=== PATIENT | female | born 1995 | race Caucasian/White ===

== ENCOUNTER 2019-03-28 15:08 | Emergency (ER) | payer OTHER ==
--- NOTE | 2019-03-28 15:36 | ER Document Report ---
ED Medical Screen (RME) - General Chief Complaint: Vag Bleeding, +preg <12wks Stated Complaint: VAGINAL BLEEDING Time Seen by Provider: 03/28/19 15:32 TRAVEL OUTSIDE OF THE [place] IN LAST 30 DAYS: No - HPI Notes: 03/28/19 15:35 Patient is a 23-year-old female G3, P1 approximately 7 weeks by gestation who presents complaining of light vaginal bleeding that began last evening. She is able to eat and drink without difficulty. She is urinating normally. No other concerns or complaints. No surgical history to her abdomen. Denies EATON, fever, neck pain, URI, CP, SOB, Abd pain, dysuria, back pain, or rash. I have treated and performed a rapid initial assessment of this patient. A comprehensive ED assessment and evaluation of the patient, analysis of test results and completion of medical decision making process will be conducted by additional ED providers. PHYSICAL EXAMINATION: GENERAL: Well-appearing, well-nourished and in no acute distress. A&Ox4. Answers questions appropriately. LUNGS: Breath sounds clear to auscultation bilaterally and equal. No wheezes rales or rhonchi. HEART: Regular rate and rhythm without murmurs, rubs, gallops. ABDOMEN: Soft, nondistended abdomen. No guarding, no rebound. Normal bowel sounds present. No CVA tenderness bilaterally. Grossly nontender (cannot elicit thorough abd exam w/o bed, however). - Related Data Allergies/Adverse Reactions: Penicillins Allergy (Verified 03/28/19 15:09) Past Medical History - General Last Menstrual Period: 02/04/19 - Social History Frequency of alcohol use: None Drug Abuse: None Renal/ Medical History: Denies: Hx Peritoneal Dialysis Physical Exam - Vital signs Vitals: Temp Pulse Resp BP Pulse Ox 98.9 F 87 20 136/65 H 98 03/28/19 15:12 03/28/19 15:12 03/28/19 15:12 03/28/19 15:12 03/28/19 15:12 Course - Vital Signs Vital signs: Temp Pulse Resp BP Pulse Ox 98.9 F 87 20 136/65 H 98 03/28/19 15:12 03/28/19 15:12 03/28/19 15:12 03/28/19 15:12 03/28/19 15:12
[2019-03-28 16:46] LABS: ABSOLUTE BASOPHILS # (AUTO) 0.1 10^3/uL (0.0-0.2); ABSOLUTE EOSINOPHILS # (AUTO) 0.1 10^3/uL (0.0-0.6); ABSOLUTE MONOCYTES (AUTO) 0.7 10^3/uL (0.1-1.4); ABSOLUTE NEUT (AUTO) 8.1 10^3/uL (1.7-8.2); BASOPHILS % (AUTO) 0.7 % (0-2); HEMATOCRIT 42.8 % (36.0-47.0); HEMOGLOBIN 14.6 g/dL (12.0-15.5); LYMPHOCYTES % (AUTO) 24.6 % (13-45); MEAN CORPUSCULAR HEMOGLOBIN 28.9 pg (27.0-33.4); MEAN CORPUSCULAR VOLUME 85 fl (80-97); MONOCYTES % (AUTO) 6.2 % (3-13); PLATELET COUNT 357 10^3/uL (150-450); RED BLOOD COUNT 5.04 10^6/uL (3.72-5.28); SEGMENTED NEUTROPHILS % (AUTO) 67.5 % (42-78); TOTAL CELLS COUNTED % (AUTO) 100 %
[2019-03-28 16:51] LABS: APPEARANCE,URINE SLIGHTLY-CLOUDY; BILIRUBIN,URINE NEGATIVE (NEGATIVE); COLOR,URINE YELLOW; GLUCOSE, URINE NEGATIVE (NEGATIVE); KETONES,URINE NEGATIVE (NEGATIVE); LEUKOCYTE ESTERASE,URINE NEGATIVE (NEGATIVE); NITRITE,URINE NEGATIVE (NEGATIVE); PROTEIN,URINE NEGATIVE (NEGATIVE); URINE SPECIFIC GRAVITY 1.028; UROBILINOGEN,URINE NEGATIVE mg/dL (<2.0)
--- NOTE | 2019-03-28 17:38 | RADIOLOGY REPORT (SQ) ---
EXAM DESCRIPTION: U/S OB TRANSVAGINAL W/O DOP COMPLETED DATE/TIME: 03/28/2019 5:13 pm REASON FOR STUDY: preg, bleeding COMPARISON: None. TECHNIQUE: Transabdominal static and realtime grayscale images acquired of the pelvis. Additional se lected spectral and color Doppler images recorded. All images stored on PACs. bHCG: Not available. CLINICAL DATES: 7 weeks, 3 days LIMITATIONS: None. FINDINGS: FETUS: A focal hypoechoic structure within the endometrial cavity is identified by the so nographer as a pole and measured at 0.6 cm crown-rump length, gestational age 6 weeks, 3 days. There is no proper gestational sac identified. EFW: Not applicable less than 20 weeks. CRL: 0.6 cm. FHR: Not visualized. UTERUS: No masses. No anomalies. CERVICAL LENGTH: 2.7 cm Closed. RIGHT ADNEXA: Normal ovary with normal vascular flow. No adnexal free fluid. No adnexal masses. LEFT ADNEXA: Not visualized. No adnexal free fluid. No adnexal masses. FREE FLUID: None. OTHER: No other significant finding. IMPRESSION: A focal hypoechoic structure within the endometrial cavity is identified by the sonograp her as a pole and measured at 0.6 cm crown-rump length, gestational age 6 weeks, 3 days. There is no proper gestational sac or amniotic fluid identified. No cardiac activity identified. Th is is not characteristic in appearance of a viable gestation and not favored to represent a viable fe jomar pole. Early of uncertain location and viability. Recommend ectopic precautions, seria l beta HCG, and follow-up ultrasound examination in 7 to 14 days to ensure continued development and viability. Trimester of : First - 0 to 13 weeks. TECHNICAL DOCUMENTATION: JOB ID: [id number] [employer]- All Rights Reserved rev Reading location - IP/workstation name: [email or web address]
--- NOTE | 2019-03-28 18:42 | ER Document Report ---
ED General - General Chief Complaint: Vag Bleeding, +preg <12wks Stated Complaint: VAGINAL BLEEDING Time Seen by Provider: 03/28/19 15:32 Mode of Arrival: Ambulatory Information source: Patient TRAVEL OUTSIDE OF THE [place] IN LAST 30 DAYS: No - HPI Patient complains to provider of: Spotting in early . Onset: Other - Off and on for a couple of weeks Onset/Duration: Intermittent Quality of pain: No pain Severity: None Associated symptoms: None Exacerbated by: Denies Relieved by: Denies Similar symptoms previously: No Recently seen / treated by doctor: No Notes: 23-year-old female 3 para 1 spontaneous AB 1 here with early . Does not know how far along she is. Intermittent spotting off and on for the past week or so. No pelvic cramping of significance. No fevers no chills. No clots or tissue. - Related Data Allergies/Adverse Reactions: Penicillins Allergy (Verified 03/28/19 15:09) Past Medical History - General Information source: Patient Last Menstrual Period: 02/04/19 - Social History Smoking Status: Former Smoker Frequency of alcohol use: None Drug Abuse: None Family History: Reviewed & Not Pertinent Patient has suicidal ideation: No Patient has homicidal ideation: No Renal/ Medical History: Denies: Hx Peritoneal Dialysis Review of Systems - Review of Systems Notes: Constitutional: No fevers. No chills. EENT: No eye redness. No eye pain. No ear pain. No sore throat. Cardiovascular: No chest pain. No palpitations. Respiratory: No cough. No shortness of breath. No respiratory distress. Gastrointestinal: No abdominal pain. No nausea, vomiting, or diarrhea. Genitourinary: Vaginal bleeding Musculoskeletal: Atraumatic. No swelling. No deformities. Skin: No rash or lesions. Lymphatic: No swollen lymph nodes. Neurologic: No headache. No syncope. Psychiatric: No suicidal or homicidal ideation. Physical Exam - Vital signs Vitals: Temp Pulse Resp BP Pulse Ox 98.9 F 87 20 136/65 H 98 03/28/19 15:12 03/28/19 15:12 03/28/19 15:12 03/28/19 15:12 03/28/19 15:12 - Notes Notes: General: Well-developed, well-nourished. In no acute distress. Non-toxic appearing. Cardiac: Well-perfused. Regular rate and rhythm. No murmurs, rubs, or gallops. Pulmonary: No respiratory distress. No cyanosis. Bilateral lung fiels are clear to auscultation. Abdominal: Non-distended. Non-rigid. Bowels sounds are present in all four quadrants. No guarding or rebound. HEENT: Head is atraumatic. Conjunctivae not reddened. No tearing. PERRL. EOMI. Orbits atraumatic. No periorbital swelling or erythema. Oropharynx is without erythema, swelling, or exudates. Neck: Supple. No adenopathy. No meningismus. Dermatologic: Warm with good turgor. No rash. Atraumatic. Chest: Atraumatic. No chest wall tenderness to palpation. Musculoskeletal: Moves all extremities well. No range of motion deficits. no muscular or joint tenderness. No paraspinal muscle tenderness. no midline spinal tenderness or step-off. Genitourinary: Examination deferred Neurologic: No gross neurologic deficits. Psychiatric: Normal mood. Course - Re-evaluation Re-evalutation: 03/28/19 18:39 Lab work reveals that you are indeed . Your quantitative hCG level is 1610. This signifies that you are very early in . Your ultrasound shows that there is some evidence of developing in your uterus. However, because of how early it is, there is no heartbeat or evidence of viability at this time. This can be subject to change. In order to fully asse ss how the is doing at this point, you need to return in 2 days to have your hormone levels rechecked. If your hormone levels are going up as expected, the is probably moving forward without any complication. If however your numbers are trending downward this likely means that your is no longer viable and you are on the verge of miscarriage. Return to the outpatient lab of the hospital with the enclosed lab order to have this test rechecked in 2 days. 03/28/19 18:40 - Vital Signs Vital signs: Temp Pulse Resp BP Pulse Ox 98.9 F 87 20 136/65 H 98 03/28/19 15:12 03/28/19 15:12 03/28/19 15:12 03/28/19 15:12 03/28/19 15:12 - Laboratory Result Diagrams: 03/28/19 16:27 Laboratory results interpreted by me: 03/28/19 03/28/19 03/28/19 16:27 16:27 16:27 WBC 12.0 H Beta HCG, Quant 1610.70 H Urine Ascorbic Acid 40 H Discharge - Discharge Clinical Impression: Spotting affecting Qualifiers: Trimester: first trimester Qualified Code(s): O26.851 - Spotting complicating , first trimester Condition: Good Disposition: HOME, SELF-CARE Instructions: Bleeding During Early ([facility]) Additional Instructions: Come to outpatient lab to have your hormone levels rechecked in 2 days. Forms: Follow-Up Laboratory Testing Referrals: JEREMI SOW MD [ACTIVE STAFF] - Follow up as needed
[2019-03-28 18:43] VITALS: BP 115/65
== END 2019-03-28 18:49 | disposition home or self-care (01) ==
LOC: ER 15:08
DX: O26.851 Spotting complicating pregnancy, first trimester (principal); Z3A.01 Less than 8 weeks gestation of pregnancy; Z87.891 Personal history of nicotine dependence; Z88.0 Allergy status to penicillin
CPT/HCPCS: 36415; 76817; 81001; 84702; 85025; 86900; 86901; 99284

== ENCOUNTER → 2019-03-30 | Outpatient (CLI) | payer OTHER | LOC: LAB 11:03 | PROVIDERS: ATTEND Physician Assistant | DX: O26.851 Spotting complicating pregnancy, first trimester (principal) | CPT/HCPCS: 36415; 84702 ==

== ENCOUNTER 2019-04-06 21:27 | Emergency (ER) | payer OTHER ==
--- NOTE | 2019-04-06 23:45 | ER Document Report ---
ED Medical Screen (RME) - General Chief Complaint: Abdominal Cramping Stated Complaint: VAGINAL BLEEDING Time Seen by Provider: 04/06/19 23:42 Notes: 23-year-old female 3 para 1 AB 1 coming in with beta hCG level of 1818 which resulted yesterday. She developed worsening pelvic cramping and clotting today. She is worried she may be miscarrying. I have treated and performed a rapid initial assessment of this patient. A co mprehensive ED assessment and evaluation of the patient, analysis of test results and completion of medical decision making process will be conducted by additional ED providers. PHYSICAL EXAMINATION: GENERAL: Well-appearing, well-nourished and in no acute distress. A&Ox4. Answers questions appropriately. LUNGS: Breath sounds clear to auscultation bilaterally and equal. No wheezes rales or rhonchi. HEART: Regular rate and rhythm without murmurs, rubs, gallops. Extremities: No cyanosis, clubbing, or edema b/l. NEUROLOGICAL: Normal speech, normal gait. PSYCH: Normal mood, normal affect. TRAVEL OUTSIDE OF THE [place] IN LAST 30 DAYS: No - Related Data Allergies/Adverse Reactions: Penicillins Allergy (Verified 03/28/19 15:09) Past Medical History - Social History Frequency of alcohol use: None Renal/ Medical History: Denies: Hx Peritoneal Dialysis Physical Exam - Vital signs Vitals: Temp Pulse Resp BP Pulse Ox 98.7 F 76 16 125/58 L 99 04/06/19 21:54 04/06/19 21:54 04/06/19 21:54 04/06/19 21:54 04/06/19 21:54 Course - Vital Signs Vital signs: Temp Pulse Resp BP Pulse Ox 98.7 F 76 16 125/58 L 99 04/06/19 21:54 04/06/19 21:54 04/06/19 21:54 04/06/19 21:54 04/06/19 21:54
[2019-04-07 00:18] LABS: ABSOLUTE BASOPHILS # (AUTO) 0.1 10^3/uL (0.0-0.2); ABSOLUTE EOSINOPHILS # (AUTO) 0.2 10^3/uL (0.0-0.6); ABSOLUTE LYMPHOCYTES (AUTO) 4.4 10^3/uL (0.5-4.7); ABSOLUTE NEUT (AUTO) 8.8 10^3/uL (1.7-8.2); BASOPHILS % (AUTO) 0.7 % (0-2); EOSINOPHILS % (AUTO) 1.6 % (0-6); HEMOGLOBIN 13.3 g/dL (12.0-15.5); LYMPHOCYTES % (AUTO) 30.3 % (13-45); MEAN CORPUSCULAR HEMOGLOBIN 28.5 pg (27.0-33.4); MEAN CORPUSCULAR HGB CONC 33.3 g/dL (32.0-36.0); MEAN CORPUSCULAR VOLUME 86 fl (80-97); MONOCYTES % (AUTO) 6.9 % (3-13); PLATELET COUNT 332 10^3/uL (150-450); RED BLOOD COUNT 4.67 10^6/uL (3.72-5.28); RED CELL DISTRIBUTION WIDTH 13.1 % (11.5-14.0); SEGMENTED NEUTROPHILS % (AUTO) 60.5 % (42-78); TOTAL CELLS COUNTED % (AUTO) 100 %; WHITE BLOOD COUNT 14.6 10^3/uL (4.0-10.5)
--- NOTE | 2019-04-07 00:26 | RADIOLOGY REPORT (SQ) ---
EXAM DESCRIPTION: US TRANSVAGINAL COMPLETED DATE/TME: 04/06/2019 23:43 CLINICAL HISTORY: 23 years, Female, pelvic cramping and clotting COMPARISON: None. TECHNIQUE: Transvaginal pelvic ultrasound with grayscale and color images LIMITATIONS: None. FINDINGS: The uterus is anteverted and measures 8.8 x 5.0 x 3.8 cm. No definite intrauterine gestational sac is identified. The endometrium measures approximately 7 mm in thickness. Both ovaries demonstrate normal size and shape. The right ovary measures 2.4 x 1.8 x 1.8 cm. The left ovary measures 1.7 x 1.1 x 1.1 cm. Both ovaries demonstrate normal flow. No abnormal adnexal masses detected. No significant free fluid is identified. IMPRESSION: No evidence of an intrauterine gestational sac. This may be due to an early . Recommend follow-up ultrasound and correlation with beta hCG copyright 2010 [employer]- All Rights Reserved
[2019-04-07 00:52] LABS: AMORPHOUS SEDIMENT,URINE TRACE /HPF; APPEARANCE,URINE CLOUDY; BILIRUBIN,URINE NEGATIVE (NEGATIVE); COLOR,URINE YELLOW; GLUCOSE, URINE NEGATIVE (NEGATIVE); KETONES,URINE NEGATIVE (NEGATIVE); LEUKOCYTE ESTERASE,URINE NEGATIVE (NEGATIVE); NITRITE,URINE NEGATIVE (NEGATIVE); PROTEIN,URINE NEGATIVE (NEGATIVE); URINE SPECIFIC GRAVITY 1.031; UROBILINOGEN,URINE NEGATIVE mg/dL (<2.0)
--- NOTE | 2019-04-07 05:19 | ER Document Report ---
ED General - General Chief Complaint: Abdominal Cramping Stated Complaint: VAGINAL BLEEDING Time Seen by Provider: 04/06/19 23:42 Notes: Patient is a very pleasant 23-year-old female who presents with concern for possible miscarriage. She has had venous ultrasounds this not showing an IUP. She was seen here 5 days ago and had a hcg of just over 1700. She presents back today she felt as if she is probably having a miscarriage she has had increasing pain and heavy bleeding site. No fevers. No vomiting. No diarrhea. She has a blood type of O+. No other complaints at this time. TRAVEL OUTSIDE OF THE [place] IN LAST 30 DAYS: No - Related Data Allergies/Adverse Reactions: Penicillins Allergy (Verified 03/28/19 15:09) Past Medical History - Social History Smoking Status: Never Smoker Frequency of alcohol use: None Drug Abuse: None Family History: Reviewed & Not Pertinent Patient has suicidal ideation: No Patient has homicidal ideation: No Renal/ Medical History: Denies: Hx Peritoneal Dialysis Review of Systems - Review of Systems Notes: My Normal Review Basic REVIEW OF SYSTEMS: CONSTITUTIONAL : Denies fever, chills, or sweats. Denies recent illness. RESPIRATORY: Denies cough, cold, or chest congestion. Denies shortness of breath, difficulty breathing, or wheezing. GASTROINTESTINAL: Mild crampy abdominal pain. Denies nausea, vomiting, or diarrhea. GENITOURINARY: Denies difficulty urinating, painful urination, burning, frequency, or blood in urine. FEMALE GENITOURINARY: Vaginal bleeding in . MUSCULOSKELETAL: Denies neck or back pain or joint pain or swelling. SKIN: Denies rash or skin lesions. NEUROLOGICAL: Denies altered mental status or loss of consciousness. ALL OTHER SYSTEMS REVIEWED AND NEGATIVE. Physical Exam - Vital signs Vitals: Temp Pulse Resp BP Pulse Ox 98.7 F 76 16 125/58 L 99 04/06/19 21:54 04/06/19 21:54 04/06/19 21:54 04/06/19 21:54 04/06/19 21:54 - Notes Notes: General Appearance: Well nourished, alert, cooperative, no acute distress, no obvious discomfort. well-appearing. Vitals: reviewed, See vital signs table. Eyes: PERRL, EOMI, Conjuctiva clear Lungs: No wheezing, No rales, No rhonci, No accessory muscle use, good air exchange bilaterally. Heart: Normal rate, Regular rythm, No murmur, no rub Abdomen: Normal BS, soft, No rigidity, No abdominal tenderness, No guarding, no rebound, no abdominal masses, no organomegaly Skin: warm, dry, appropriate color Neuro: speech clear, oriented x 3, normal affect, responds appropriately to questions. Course - Re-evaluation Re-evalutation: 04/07/19 06:35 Suspect the patient most likely is having a miscarriage based on the fact that she is having a decreasing hCG level and continues to show no evidence of intrauterine on her ultrasound. Informed patient of this. 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 I encouraged her return to ER immediately if she has severe pain, heavy bleeding, fevers, or if she feels unwell. Patient does not require RhoGam as her blood type is O+. Patient agrees with plan will be discharged home. Dictation of this chart was performed using voice recognition software; therefore, there may be some unintended grammatical errors. - Vital Signs Vital signs: Temp Pulse Resp BP Pulse Ox 98.2 F 81 19 116/73 100 04/07/19 06:02 04/07/19 06:02 04/07/19 06:02 04/07/19 06:02 04/07/19 06:02 - Laboratory Result Diagrams: 04/06/19 23:45 Laboratory results interpreted by me: 04/06/19 04/06/19 04/06/19 23:45 23:45 23:45 WBC 14.6 H Absolute Neutrophils 8.8 H Beta HCG, Quant 1083.30 H Urine Blood MODERATE H Urine Ascorbic Acid 40 H Discharge - Discharge Clinical Impression: Vaginal bleeding during Condition: Good Disposition: HOME, SELF-CARE Additional Instructions: As discussed with you, your hormone level has decreased over the last several days. This in conjunction with an ultrasound that does not show a suggests that you are likely having a miscarriage. It is important that you rest over the next week. You will likely have some bleeding similar to that of a heavy period. It is okay to take Tylenol and ibuprofen for pain. Please follow-up with your doctor on Friday or Friday for reevaluation to recheck your hCG level to make sure it is downtrending to 0. Please return to the ER immediately if you have bleeding that feels very heavy to the point you feel that you are becoming lightheaded or unwell, if you have fevers, or if you have intractable pain. Forms: Special Work Note
[2019-04-07 06:03] VITALS: BP 116/73
== END 2019-04-07 06:03 | disposition home or self-care (01) ==
LOC: ER 21:27
DX: O20.9 Hemorrhage in early pregnancy, unspecified (principal); R10.84 Generalized abdominal pain; Z3A.01 Less than 8 weeks gestation of pregnancy; Z88.0 Allergy status to penicillin
CPT/HCPCS: 36415; 76817; 81001; 84702; 85025; 93976; 99284